=== PATIENT | female | born 1965 | race Caucasian/White ===

== ENCOUNTER 2018-04-17 13:26 | Emergency (ER) | payer MEDICARE, OTHER ==
[2018-04-17] MEDS: ONDANSETRON (ODT) 4 MG TAB ODT (14:13)
[2018-04-17] MEDS: KETOROLAC 30 MG INJ IM (14:14)
[2018-04-17] MEDS: SUMATRIPTAN 6 MG/0.5 ML INJ SC (15:22)
[2018-04-17] MEDS: PROCHLORPERAZINE 25 MG SUPP PR (16:06)
== END 2018-04-17 16:27 | disposition home or self-care (01) ==
LOC: FTE 13:26
DX: R51 Headache (principal); E11.9 Type 2 diabetes mellitus without complications; R11.0 Nausea
CPT/HCPCS: 96372; 99284-25